=== PATIENT | male | born 1960 | race Caucasian/White ===

== ENCOUNTER → 2018-08-15 | Outpatient (CLI) | payer BC ==
[~2018-08-15] MED LIST: ASPI-1471 PO; ASPI-715 PO; ATOR-1 PO; ATOR20TA22 PO; ATOR40TA24 PO; CHON250C2 PO; DULO30CA6 PO; DULO60CA56 PO; FINA1TAB7 PO; GLUC-130 PO; GLUC500T13 PO; IOPAMIDOL 76% 150 ML INFUS BTL 150 ML ONE; LEVO25TA57 PO; LEVO75TA73 PO; MULT-820 PO; MULT-865 PO; NS(*) 0.9% 50 ML BAG 50 ML ONE; OLM20 PO; OXYB-13 PO; SILD100T59 PO; TAM4 PO; TAMS0.4C70 PO; VIT1CAPS9 PO
--- NOTE | 2018-08-15 12:17 | RADIOLOGY IMAGING REPORT ---
FACILITY: [facility] PATIENT NAME: Frankie Petersen : 1960 MR: [id number] V: [id number] EXAM DATE: ORDERING PHYSICIAN: ELEN MCCORMACK TECHNOLOGIST: Location: [facility] - [place] Patient: Frankie Petersen : 1960 Visit/Account:[id number] Date of Sevice: 08/15/2018 KUB SINGLE VIEW ABDOMEN COMPARISON: None. HISTORY: Hematuria and incompletely bladder emptying FINDINGS: BOWEL GAS PATTERN: Unremarkable. No abnormal dilation or deviation. SOFT TISSUES: No masses or organomegaly. CALCIFICATIONS: None significant. No radiopaque urinary tract calculi. Excreted contrast from a rec ent CT urogram completely opacifying both ureters with no collecting system filling defects identifie d. Single nondilated ureters bilaterally. There is no hydronephrosis, stricture or other appreciabl e collecting system abnormality. Bladder is unremarkable for technique. BONES: Negative.No fractures or suspicious osseous lesions. OTHER: Negative. No abnormal gaseous collections. IMPRESSION: Single nondilated ureters without collecting system filling defect or abnormality identified. No cole dence of collecting system stones. Report Dictated By: Antoni Nicole at 08/15/2018 12:11 PM Report E-Signed By: Antoni Nicole at 08/15/2018 12:13 PM WSN:[email or web address]
--- NOTE | 2018-08-15 12:18 | RADIOLOGY IMAGING REPORT ---
[place]AC[place] [facility] [place]IENT NAME: Frankie Petersen : 1960 MR: [id number] V: [id number] EXAM DATE: ORDERING PHYSICIAN: ELEN MCCORMACK TECHNOLOGIST: [place] [facility] [place]: Frankie Petersen : 1960 Visit/Account:[id number] Date of Sevice: 08/15/2018 US SINGLE ORGAN COMPARISON: None. HISTORY: :Hematuria with incompletely bladder emptying TECHNIQUE: Ultrasound of the bladder was performed before and after voiding. Kidneys were not image d. FINDINGS: BLADDER: Larger than typical, estimated prevoid volume 643 mL, otherwise normal appearance with bila teral ureteral jets documented. No visible wall thickening, mass, or calculus. There is a significa nt post void residual of 144 mL. IMPRESSION: Distended/mildly enlarged bladder with a 144 mL postvoid residual. Findings discussed with and image s reviewed with Dr. Mccormack. Report Dictated By: Antoni Nicole at 08/15/2018 12:13 PM Report E-Signed By: Antoni Nicole at 08/15/2018 12:15 PM WSN:[email or web address]
--- NOTE | 2018-08-15 12:24 | RADIOLOGY IMAGING REPORT ---
FACILITY: [facility] - [place] PATIENT NAME: Frankie Petersen : 1960 MR: [id number] V: [id number] EXAM DATE: ORDERING PHYSICIAN: ELEN MCCORMACK TECHNOLOGIST: Location: [facility] Patient: Frankie Petersen : 1960 Visit/Account:[id number] Date of Sevice: 08/15/2018 ABDOMEN/PELVIS W/WO CONTRAST COMPARISON: None. HISTORY: Hematuria with incomplete bladder emptying. TECHNIQUE: CT images of the abdomen and pelvis were obtained without and with non-ionic intravenous contrast material. Single postcontrast scan with split bolus technique scanning in nephrogram and exc retory phase. Coronal and sagittal reformats. Coronal MIP reconstructions were made from the postcon trast scan. One of the following dose optimization techniques was utilized in the performance of thi s exam: automated exposure control; adjustment of the mA and/or kV according to patient size; or use of iterative reconstruction technique. Specific details can be referenced in the facility's radiolog y CT exam operational policy. CONTRAST: 125 mL of IV Isovue-370. FINDINGS: LUNG BASES: Unremarkable. LIVER: Unremarkable. BILIARY: Unremarkable gallbladder. No intra or extrahepatic bile duct dilatation. SPLEEN: Unremarkable. Normal size. PANCREAS: Unremarkable. No significant mass, ductal dilatation or focal atrophy. No evidence of ac apache pancreatitis. ADRENALS: Unremarkable. KIDNEYS: Symmetric enhancement and excretion into single nondilated ureters. No appreciable stones, solid mass, asymmetric perinephric stranding, or hydronephrosis. There is a benign simple 1.[address] of the left kidney upper pole. Complete ureter opacification postcontrast with no collecting syst em filling defects. GI/MESENTERY: Mild descending and sigmoid colon diverticulosis. No localized formation.. No visible mass, obstruction, or bowel wall thickening. VASCULAR: Mild distal aorta and iliac atherosclerotic calcifications. LYMPH NODES: Unremarkable. No significantly enlarged lymph nodes. BLADDER: Moderately distended. No visible focal wall thickening, appreciable lesion, or calculus. There is no bladder wall trabeculation. PELVIC ORGANS: Unremarkable prostate. BONES: Mild thoracic and lumbar spine degenerative changes.No acute-appearing fracture or suspicious osseous lesion. OTHER: Negative. IMPRESSION: 1. No cause for hematuria identified. 2. Moderately distended, otherwise normal-appearing bladder. Dedicated bladder ultrasound was also performed and reported separately. 3. Benign 1.4 cm simple cyst in the left kidney. 4. Mild left colon diverticulosis. system findings discussed in person with Dr. Mccormack at noon on date of study. Report Dictated By: Antoni Nicole at 08/15/2018 12:15 PM Report E-Signed By: Antoni Nicole at 08/15/2018 12:19 PM WSN:[email or web address]
--- NOTE | 2018-08-15 13:21 | RADIOLOGY IMAGING REPORT ---
FACILITY: [facility] - [place] PATIENT NAME: Frankie Petersen : 1960 MR: [id number] V: [id number] EXAM DATE: ORDERING PHYSICIAN: ELEN MCCORMACK TECHNOLOGIST: Location: [facility] - [place] Patient: Frankie Petersen : 1960 Visit/Account:[id number] Date of Sevice: 08/15/2018 KUB SINGLE VIEW ABDOMEN COMPARISON: None. HISTORY: Hematuria with incomplete bladder emptying FINDINGS: BOWEL GAS PATTERN: Unremarkable. No abnormal dilation or deviation. SOFT TISSUES: No masses or organomegaly. CALCIFICATIONS: None significant. No radiopaque urinary tract calculi. BONES: Negative.No fractures or suspicious osseous lesions. Left 12th rib is either small or absent . There are five lumbar vertebra. OTHER: Negative. No abnormal gaseous collections. IMPRESSION: No radiopaque urinary tract calculi. Report Dictated By: Antoni Nicole at 08/15/2018 1:16 PM Report E-Signed By: Antoni Nicole at 08/15/2018 1:18 PM WSN:[email or web address]
== END ==
LOC: CT 01:07
DX: R31.1 Benign essential microscopic hematuria (principal); R39.14 Feeling of incomplete bladder emptying; N28.1 Cyst of kidney, acquired; K57.30 Diverticulosis of large intestine without perforation or abscess without bleeding
CPT/HCPCS: 36415; 74018; 74178; 76705; 82565; J7050; Q9967

== ENCOUNTER 2018-08-21 00:47 | Day surgery (SDC) | payer BC ==
[~2018-08-21] VITALS: Ht 190.5 cm; Wt 112.0 kg
[~2018-08-21 00:47] MED LIST changes: -IOPAMIDOL 76% 150 ML INFUS BTL 150 ML ONE; -NS(*) 0.9% 50 ML BAG 50 ML ONE
[2018-08-21] MEDS ORDERED: IOPAMIDOL-200 50 ML VIAL IS ONE (13:45)
[2018-08-21 13:50] VITALS: BP 163/89
--- NOTE | 2018-08-21 14:14 | EKG ---
FACILITY: [facility] PATIENT NAME: JOSE JONES : [id number] MR: [id number] V: [id number] EXAM DATE: ORDERING PHYSICIAN: THEO BABIN TECHNOLOGIST: ARCENIO Rivera Reason : PREOP-BLADDER Blood Pressure : / mmHG Vent. Rate : 065 BPM Atrial Rate : 065 BPM P-R Int : 166 ms QRS Dur : 110 ms QT Int : 434 ms P-R-T Axes : -20 094 055 degrees QTc Int : 451 ms Normal sinus rhythm Normal ECG When compared with ECG of 13-AUG-2013 14:01, No significant change was found Confirmed by THEO JIMÉNEZ ([id number]) on 08/22/2018 6:36:08 AM Referred By: Confirmed By:THEO JIMÉNEZ
[2018-08-21] MEDS ORDERED: fentaNYL CITR 100 MCG/2 ML AMP ONE (14:19)
[2018-08-21] MEDS ORDERED: LIDOCAINE 2% IV 100 MG/5ML SYR ONE (14:20)
[2018-08-21] MEDS ORDERED: PROPOFOL EMUL(*) 10MG/ML 20 ML 20 ML ONE ×2 (14:21→15:18)
[2018-08-21] MEDS ORDERED: NORMOSOL R SOLN(*) 1000 ML BAG 1,000 ML IV PRN (15:15)
[2018-08-21] MEDS ORDERED: LIDOCAINE/SOD BICARB 8.4% SYR ID ONE (15:15)
[2018-08-21] MEDS ORDERED: FAMOTIDINE 20 MG TAB PO ONE (15:15)
[2018-08-21] MEDS ORDERED: cefTRIAXone(*) 2 GM VIAL 2 GM in NS(*) 0.9% 100 ML ADDVANT BAG 100 ML IVPB ONE (15:15)
[2018-08-21] MEDS ORDERED: GENTAMICIN(*) 80 MG/2 ML VIAL 160 MG in NS(*) 0.9% 100 ML BAG 100 ML IVPB ONE (15:15)
[2018-08-21] MEDS ORDERED: MIDAZOLAM 2 MG/2 ML VIAL IVP PRN (15:15)
[2018-08-21] MEDS ORDERED: ONDANSETRON 4 MG/2 ML VIAL ONE (15:43)
[2018-08-21] MEDS ORDERED: DEXAMETHASONE SOD 4 MG/ML VIAL ONE (15:43)
[2018-08-21] MEDS ORDERED: WATER FOR IRRIG,STERILE 3000ML IR ONE (16:12)
[2018-08-21] MEDS ORDERED: KETOROLAC 30 MG/ML VIAL ONE (16:23)
[2018-08-21] MEDS ORDERED: FAMO20TA28 PO ×2 (16:27→16:28)
[2018-08-21] MEDS ORDERED: HYDR-653 PO (16:27)
[2018-08-21] MEDS ORDERED: CIPR-344 PO (16:29)
[2018-08-21] MEDS ORDERED: PHEN200T32 PO (16:29)
--- NOTE | 2018-08-22 03:52 | OPERATIVE REPORT 1 ---
EVENT DATE: August 21, 2018 SURGEON: Bennie Mansfield MD ANESTHESIOLOGIST: Hilario Hurtado MD ANESTHESIA: General. PREOPERATIVE DIAGNOSIS Microscopic hematuria. POSTOPERATIVE DIAGNOSIS Microscopic hematuria. PROCEDURE PERFORMED 1. Cystourethroscopy. 2. Bilateral ureteral pyelograms. 3. Hydrodistention of the bladder. 4. Examination under anesthesia. DESCRIPTION OF PROCEDURE Under general anesthetic, the patient was prepped and draped in the extended lithotomy position. The 21 panendoscope was admitted through the urethra and into the bladder. The urethra was normal. The prostate showed trilobular hyperplasia with obstruction, with a moderate median lobe. Probable postvoid residual was approximately 200 mL. Cystoscopy showed 4+ trabeculation. Trigone and ureteral orifices were normal. No bloody efflux from either orifice. Bilateral ureteral pyelograms were obtained and appeared to be grossly within normal limits, in my opinion. The radiologist's interpretation is pending. There was free drainage of contrast from the kidneys bilaterally. The bladder filled under gravity; flow and measured to a total of approximately 1000 mL. On drainage of the bladder, there was no bloody drainage. On reinspection of the bladder, there were no glomerulations. The bladder was drained. The scope was withdrawn. The examination under anesthesia revealed approximately a 60 to 70 g prostate. Sulcus was present and benign-feeling. The patient tolerated the procedures satisfactorily and returned to the recovery room in satisfactory condition. This is a 57-year-old white male complaining of microscopic hematuria. Patient has significant difficulty with micturition and requires Flomax twice a day to relieve his symptomatology of urgency and frequency of urination and nocturia. Urine culture pre-evaluation showed no growth. CT-IVP was within normal limits. Patient was so advised preoperatively and was agreeable to the lower tract studies. See operative note for details of lower tract studies. Patient will be ready for discharge home when alert and functional, to force fluids at 2L per day. Activities are as tolerated. He is to continue his usual medications. Copy of instructions was given to the patient. We plan followup on 05 September 2018. He is to call for an appointment. He is given a dose of Toradol in the recovery room and discharged on [place], Pyridium, and Cipro therapy, and Motrin therapy. If he has any problems, he is to contact me or go to the emergency room. MELODY
--- NOTE | 2018-08-22 03:54 | RADIOLOGY IMAGING REPORT ---
FACILITY: [facility] PATIENT NAME: Frankie Petersen : 1960 MR: [id number] V: [id number] EXAM DATE: ORDERING PHYSICIAN: ELEN MCCORMACK TECHNOLOGIST: [place] [facility] [place] : 1960 Visit/Account:[id number] Date of Sevice: 08/21/2018 Retrograde study in OR: Indication: Renal calculi. Technique: 11 images were submitted. Fluoroscopy time was 13 seconds. Comparison: 08/15/2018 Findings: The images document opacification of the bilateral ureters and intrarenal collecting struct ures. There are no signs of obstruction, focal dilatation, or filling defects. Refer to the operative report for full details. Impression: As above. Report Dictated By: Haja Silver MD at 08/22/2018 3:46 AM Report E-Signed By: Haja Silver MD at 08/22/2018 3:50 AM WSN:[id number]
== END 2018-08-21 17:15 | disposition home or self-care (01) ==
LOC: OR 00:47
DX: R31.29 Other microscopic hematuria (principal); E03.9 Hypothyroidism, unspecified; I10 Essential (primary) hypertension
CPT/HCPCS: 52005; 74420; 81001; 87088; 93005; C1758; J0696; J1100; J1580; J2001; J2250; J2405; J2704; J3010; J7050; Q9966

== ENCOUNTER → 2018-09-18 | Outpatient (CLI) | payer BC ==
[~2018-09-18] MED LIST changes: +CIPR-344 PO; +FAMO20TA28 PO; +HYDR-653 PO; +PHEN200T32 PO
== END ==
LOC: LAB 12:55
DX: R31.1 Benign essential microscopic hematuria (principal)